=== PATIENT | male | born 1975 | race Caucasian/White ===

== ENCOUNTER 2017-07-02 09:21 | Observation (INO) | payer BC ==
[2017-07-02] MEDS ORDERED: Sodium Chloride 0.9% 2.5 ML Syringe FLUSH PRN (09:31)
[2017-07-02] MEDS ORDERED: Sodium Chloride 0.9% 10 ML Syringe FLUSH PRN (09:31)
[2017-07-02] MEDS: Nitroglycerin 0.4 MG Tab.SL SL ONE ×2 (09:36→09:44)
--- NOTE | 2017-07-02 09:37 | EDM.PDOC ---
ED HPI GENERAL MEDICAL PROBLEM - General Chief Complaint: Chest Pain Stated Complaint: CHEST PAIN Time Seen by Provider: 07/02/17 09:27 - History of Present Illness INITIAL COMMENTS - FREE TEXT/NARRATIVE: HISTORY AND PHYSICAL: History of present illness: The patient is a 41-year-old male who presents with chest pain that started approximately 2-1/2 hours ago while doing normal activities and has been persistent. The patient said he had an episode yesterday while at work when he was working with a hammer where he felt like his heart was beating hard but it wasn't necessarily chest pain. That lasted about 20 minutes. He was fine the rest of the evening and slept fine and woke up this morning was doing his morning activities when the discomfort started which he indicates at the left sternal border. There is no radiation and no associated symptoms. He rates it currently has a 3/10. The patient did take a 325 aspirin at home. The patient has a significant family history of a father who had a heart attack with in his mid 40s and the patient in the past has seen a sliver cutter at [facility] but has not seen that doctor for the last 2 years. He normally sees her on an annual visit. Patient said he last had a stress test 2 years ago which was normal. The patient recently quit smoking but does Vape and he does drink 2- 3 beers every day but has no drug use. The patient is normally active at work and has no chest pain with his activities. Patient has no leg pain or swelling and has been eating and drinking normally. Patient has no nausea or abdominal complaints currently. Review of systems: As per history of present illness and below otherwise all systems reviewed and negative. Past medical history: As per history of present illness and as reviewed below otherwise noncontributory. Surgical history: As per history of present illness and as reviewed below otherwise noncontributory. Social history: No reported history of drug or alcohol abuse. Family history: As per history of present illness and as reviewed below otherwise noncontributory. Physical exam: Gen.: Well-developed well-nourished man who is nontoxic and vital signs been reviewed by me. HEENT: Atraumatic, normocephalic, negative for conjunctival pallor or scleral icterus, mucous membranes moist, throat clear, neck supple, nontender, trachea midline. Lungs: Clear to auscultation, breath sounds equal bilaterally, chest nontender. Heart: S1S2, regular, negative for clicks, rubs, or JVD. Abdomen: Soft, nondistended, nontender. Negative for masses or hepatosplenomegaly. NABS Pelvis: Stable nontender. Genitourinary: Deferred. Rectal: Deferred. Extremities: Atraumatic, negative for cords or calf pain. Neurovascular unremarkable. No pedal edema or leg asymmetry Neuro: Awake, alert, oriented. Cranial nerves II through XII unremarkable. Cerebellum unremarkable. Motor and sensory unremarkable throughout. Exam nonfocal. Skin: No evidence of any overt rashes or lesions and no diaphoresis Diagnostics: EKG CBC CMP amylase lipase INR troponin chest x-ray Therapeutics: IV O2 monitor, patient took a 325 aspirin prior to arrival so I will not repeat the dosing, nitroglycerin sublingual nitroglycerin paste Re-eval--patient is chest pain-free after 2 sublingual nitros. 1/2 inch of nitro paste will be placed and I will continue to monitor his testing results and plan for observation admission. I discussed with the patient at length all of his testing results and his risk factors and after some thought he is agreeable for observation admission. I will discuss this case with our hospitalist Dr. Soares and plan for observation admission. He continues to remain pain-free Impression: Chest pain rule out ACS Definitive disposition and diagnosis as appropriate pending reevaluation and review of above. left chest Pain Score (Numeric/FACES): 4 - Related Data Allergies Allergy/AdvReac Type Severity Reaction Status Date / Time No Known Allergies Allergy Verified 07/02/17 09:24 Home Meds: Home Meds Acetaminophen/oxyCODONE [Percocet 325-5 MG] 1 tab PO DAILY 07/02/17 [History] Past Medical History HEENT History: Reports: None Cardiovascular History: Reports: Hypertension Respiratory History: Reports: None Gastrointestinal History: Reports: None Genitourinary History: Reports: None Musculoskeletal History: Reports: None Neurological History: Reports: None Psychiatric History: Reports: None Endocrine/Metabolic History: Reports: None Hematologic History: Reports: None Immunologic History: Reports: None Oncologic (Cancer) History: Reports: None Dermatologic History: Reports: None - Infectious Disease History Infectious Disease History: Reports: Chicken Pox - Past Surgical History Head Surgeries/Procedures: Reports: None HEENT Surgical History: Reports: None Cardiovascular Surgical History: Reports: None Respiratory Surgical History: Reports: None GI Surgical History: Reports: None Male Surgical History: Reports: None Endocrine Surgical History: Reports: None Neurological Surgical History: Reports: None Musculoskeletal Surgical History: Reports: None Oncologic Surgical History: Reports: None Dermatological Surgical History: Reports: None Social & Family History - Family History Cardiac: Reports: [place] - Tobacco Use Smoking Status *Q: Former Smoker Used Tobacco, but Quit: Yes Month Tobacco Last Used: 2 - Caffeine Use Caffeine Use: Reports: Coffee - Recreational Drug Use Recreational Drug Use: No ED ROS GENERAL - Review of Systems Review Of Systems: ROS reveals no pertinent complaints other than HPI. ED EXAM, GENERAL - Physical Exam Exam: See Below (See dictation) Course - Vital Signs Last Recorded V/S: Last Vital Signs Temp 36.4 C 07/02/17 09:25 Pulse 84 07/02/17 09:50 Resp 18 07/02/17 09:50 BP 116/72 07/02/17 09:50 Pulse Ox 98 07/02/17 09:50 - Orders/Labs/Meds Orders: Active Orders 24 hr Category Date Time Status Patient Status [ADT] Stat ADT 07/02/17 10:46 Ordered Cardiac Monitoring [RC] . DIRECTED Care 07/02/17 09:31 Active EKG Documentation Completion [RC] STAT Care 07/02/17 09:31 Active Oxygen Therapy, ED [RC] ASDIRECTED Care 07/02/17 09:31 Active Pulse Oximetry [RC] ASDIRECTED Care 07/02/17 09:31 Active Chest 1V Frontal [CR] Stat Exams 07/02/17 09:31 Taken Sodium Chloride 0.9% [Normal Saline] 1,000 ml Med 07/02/17 09:40 Active IV STAT Sodium Chloride 0.9% [Saline Flush] Med 07/02/17 09:31 Active 10 ml FLUSH ASDIRECTED PRN Sodium Chloride 0.9% [Saline Flush] Med 07/02/17 09:31 Active 2.5 ml FLUSH ASDIRECTED PRN Saline Lock Insert [OM.PC] Stat Oth 07/02/17 09:31 Ordered Medication Orders Sodium Chloride (Normal Saline) 1,000 mls @ 125 mls/hr IV STAT ONE Stop: 07/02/17 17:39 Last Admin: 07/02/17 09:41 Dose: 125 mls/hr Sodium Chloride (Saline Flush) 10 ml FLUSH ASDIRECTED PRN PRN Reason: Keep Vein Open Last Admin: 07/02/17 09:39 Dose: 10 ml Sodium Chloride (Saline Flush) 2.5 ml FLUSH ASDIRECTED PRN PRN Reason: Keep Vein Open Last Admin: 07/02/17 09:40 Dose: 2.5 ml Labs: Laboratory Tests 07/02/17 07/02/17 07/02/17 Range/Units 09:30 09:30 09:30 WBC 6.74 (4.0-11.0) K/uL RBC 5.17 (4.50-5.90) M/uL Hgb 15.2 (13.0-17.0) g/dL Hct 45.1 (38.0-50.0) % MCV 87.2 (80.0-98.0) fL MCH 29.4 (27.0-32.0) pg MCHC 33.7 (31.0-37.0) g/dL RDW Std Deviation 42.5 (28.0-62.0) fl RDW Coeff of Sujit 13 (11.0-15.0) % Plt Count 178 (150-400) K/uL MPV 9.80 (7.40-12.00) fL Neut % (Auto) 60.7 (48.0-80.0) % Lymph % (Auto) 25.7 (16.0-40.0) % [place] % (Auto) 11.7 (0.0-15.0) % Eos % (Auto) 1.5 (0.0-7.0) % Baso % (Auto) 0.4 (0.0-1.5) % Neut # (Auto) 4.1 (1.4-5.7) K/uL Lymph # (Auto) 1.7 (0.6-2.4) K/uL [place] # (Auto) 0.8 (0.0-0.8) K/uL Eos # (Auto) 0.1 (0.0-0.7) K/uL Baso # (Auto) 0.0 (0.0-0.1) K/uL Nucleated RBC % 0.0 /100WBC Nucleated RBCs # 0 K/uL INR 1.01 Sodium 135 L (136-146) mmol/L Potassium 3.5 (3.5-5.1) mmol/L Chloride 107 (98-110) mmol/L Carbon Dioxide 19 L (21-31) mmol/L BUN 14 (6.0-23.0) mg/dL Creatinine 1.0 (0.6-1.5) mg/dL Est Cr Clr Drug Dosing 92.15 mL/min Estimated GFR (MDRD) > 60.0 ml/min Glucose 97 (60-110) mg/dL Calcium 8.6 L (8.8-10.8) mg/dL Total Bilirubin 1.3 (0.1-1.5) mg/dL AST 28 (5-40) IU/L ALT 26 (8-54) IU/L Alkaline Phosphatase 69 (40-150) Troponin I < 0.10 (0.0-0.29) NG/ML Total Protein 6.5 (6.0-8.0) g/dL Albumin 4.1 (3.5-5.0) g/dL Globulin 2.4 (2.0-3.5) g/dL Albumin/Globulin Ratio 1.7 (1.3-2.8) Amylase 35 (10-90) U/L Lipase 10 (7-80) U/L Meds: Medications Generic Name Dose Route Start Last Admin Trade Name Freq PRN Reason Stop Dose Admin Sodium Chloride 1,000 mls @ 125 mls/hr 07/02/17 09:40 07/02/17 09:41 Normal Saline IV 07/02/17 17:39 125 mls/hr STAT ONE Administration Sodium Chloride 10 ml 07/02/17 09:31 07/02/17 09:39 Saline Flush FLUSH 10 ml ASDIRECTED PRN Administration Keep Vein Open Sodium Chloride 2.5 ml 07/02/17 09:31 07/02/17 09:40 Saline Flush FLUSH 2.5 ml ASDIRECTED PRN Administration Keep Vein Open Discontinued Medications Generic Name Dose Route Start Last Admin Trade Name Freq PRN Reason Stop Dose Admin Nitroglycerin 0.4 mg 07/02/17 09:30 07/02/17 09:44 Nitrostat SL 07/02/17 09:31 0.4 mg ONETIME ONE Administration Nitroglycerin 0.5 gm 07/02/17 09:55 07/02/17 10:00 Nitro-Bid 2% TOP 07/02/17 09:56 0.5 gm ONETIME ONE Administration Departure - Departure Time of Disposition: 10:47 Disposition: Refer to Observation Condition: Good Clinical Impression: Acute coronary syndrome - Discharge Information Forms: ED Department Discharge - My Orders Last 24 Hours: My Active Orders 07/02/17 09:31 Cardiac Monitoring [RC] . DIRECTED EKG Documentation Completion [RC] STAT Oxygen Therapy, ED [RC] ASDIRECTED Pulse Oximetry [RC] ASDIRECTED Chest 1V Frontal [CR] Stat Sodium Chloride 0.9% [Saline Flush] 10 ml FLUSH ASDIRECTED PRN Sodium Chloride 0.9% [Saline Flush] 2.5 ml FLUSH ASDIRECTED PRN Saline Lock Insert [OM.PC] Stat 07/02/17 09:40 Sodium Chloride 0.9% [Normal Saline] 1,000 ml IV STAT 07/02/17 10:46 Patient Status [ADT] Stat - Assessment/Plan Last 24 Hours: My Active Orders 07/02/17 09:31 Cardiac Monitoring [RC] . DIRECTED EKG Documentation Completion [RC] STAT Oxygen Therapy, ED [RC] ASDIRECTED Pulse Oximetry [RC] ASDIRECTED Chest 1V Frontal [CR] Stat Sodium Chloride 0.9% [Saline Flush] 10 ml FLUSH ASDIRECTED PRN Sodium Chloride 0.9% [Saline Flush] 2.5 ml FLUSH ASDIRECTED PRN Saline Lock Insert [OM.PC] Stat 07/02/17 09:40 Sodium Chloride 0.9% [Normal Saline] 1,000 ml IV STAT 07/02/17 10:46 Patient Status [ADT] Stat
[2017-07-02] MEDS ORDERED: Sodium Chloride 0.9% 1,000 ML IV ONE (09:40)
[2017-07-02] MEDS ORDERED: Nitroglycerin 2% Oint 1 GM UD Packet TOP ONE (09:55)
[2017-07-02 10:16] LABS: CHLORIDE,CL 107 mmol/L (98-110); SODIUM,NA 135 mmol/L (136-146)
--- NOTE | 2017-07-02 12:33 | PCM.HP ---
H&P History of Present Illness - History of Present Illness Initial Comments - Free Text/Narative: 41 yo male who presents with 2 hour history of chest pain. Patient reports yesterday having palpitations while going to bed. The palpitations return this morning while at a meeting at work. He also develped chest pressure that radiated to his back. He denied any shortness of breath, fevers, chills, cough or lightheadedness. Initial EKG and cardiac enzymes were negative for signs of ischemia. Patient had a stress test two years ago due to family history of cardiac of father. left chest Pain Score (Numeric/FACES): 4 - Related Data Allergies/Adverse Reactions: Allergies Allergy/AdvReac Type Severity Reaction Status Date / Time No Known Allergies Allergy Verified 07/02/17 09:24 Home Medications: Home Meds Acetaminophen/oxyCODONE [Percocet 325-5 MG] 1 tab PO DAILY 07/02/17 [History] Past Medical History HEENT History: Reports: None Cardiovascular History: Reports: Hypertension Respiratory History: Reports: None Gastrointestinal History: Reports: None Genitourinary History: Reports: None Musculoskeletal History: Reports: None Neurological History: Reports: None Psychiatric History: Reports: None Endocrine/Metabolic History: Reports: None Hematologic History: Reports: None Immunologic History: Reports: None Oncologic (Cancer) History: Reports: None Dermatologic History: Reports: None - Infectious Disease History Infectious Disease History: Reports: Chicken Pox - Past Surgical History Head Surgeries/Procedures: Reports: None HEENT Surgical History: Reports: None Cardiovascular Surgical History: Reports: None Respiratory Surgical History: Reports: None GI Surgical History: Reports: None Male Surgical History: Reports: None Endocrine Surgical History: Reports: None Neurological Surgical History: Reports: None Musculoskeletal Surgical History: Reports: None Oncologic Surgical History: Reports: None Dermatological Surgical History: Reports: None Social & Family History - Family History Cardiac: Reports: [place] - Tobacco Use Smoking Status *Q: Former Smoker Used Tobacco, but Quit: Yes Month Tobacco Last Used: 2 - Caffeine Use Caffeine Use: Reports: Coffee - Recreational Drug Use Recreational Drug Use: No H&P Review of Systems - Review of Systems: Review Of Systems: ROS reveals no pertinent complaints other than HPI. Exam - Exam Exam: See Below - Vital Signs Vital Signs: Last Vital Signs Temp 36.4 C 07/02/17 09:25 Pulse 86 07/02/17 10:45 Resp 18 07/02/17 10:45 BP 136/84 07/02/17 10:45 Pulse Ox 99 07/02/17 10:45 Weight: 89.6 kg - Exam General: Alert, Oriented HEENT: Mucosa Moist & [place] Neck: Supple, Trachea Midline Lungs: Clear to Auscultation, Normal Respiratory Effort Cardiovascular: Regular Rate, Regular Rhythm GI/Abdominal Exam: Normal Bowel Sounds, Soft, Non-Tender Extremities: Non-Tender, No Pedal Edema Skin: Warm, Dry, Intact Neurological: No: Focal Deficit - Patient Data Result Diagrams: 07/02/17 09:30 07/02/17 09:30 *Q Meaningful Use (ADM) - VTE *Q VTE Criteria *Q: - Stroke *Q Stroke Criteria *Q: - AMI *Q AMI Criteria *Q: Problem List Initiated/Reviewed/Updated: Yes Orders Last 24hrs: Active Orders 24 hr Category Date Time Status TROPONIN I [CHEM] Q6H Lab 07/02/17 16:00 Ordered TROPONIN I [CHEM] Q6H Lab 07/02/17 22:00 Ordered Medication Orders Sodium Chloride (Normal Saline) 1,000 mls @ 125 mls/hr IV STAT ONE Stop: 07/02/17 17:39 Last Admin: 07/02/17 09:41 Dose: 125 mls/hr Sodium Chloride (Saline Flush) 10 ml FLUSH ASDIRECTED PRN PRN Reason: Keep Vein Open Last Admin: 07/02/17 09:39 Dose: 10 ml Sodium Chloride (Saline Flush) 2.5 ml FLUSH ASDIRECTED PRN PRN Reason: Keep Vein Open Last Admin: 07/02/17 09:40 Dose: 2.5 ml Assessment/Plan Comment:: 41 yo male who presented with chest pain. We will monitor overnight on telemetry and rule out for acute coronary syndrome with serial cardiac enzymes
--- NOTE | 2017-07-03 10:52 | PCM.DCSUM1 ---
Discharge Summary - Hospital Course Brief History: 41 yo male who presents with 2 hour history of chest pain. Patient reports yesterday having palpitations while going to bed. The palpitations return this morning while at a meeting at work. He also developed chest pressure that radiated to his back. He denied any shortness of breath, fevers, chills, cough or lightheadedness. Initial EKG and cardiac enzymes were negative for signs of ischemia. Patient had a stress test two years ago due to family history of cardiac of father. - Discharge Data Discharge Date: 07/03/17 Discharge Disposition: Home, Self-Care 01 Condition: Good - Discharge Diagnosis/Problem(s) (1) Palpitations SNOMED Code(s): 71110863 ICD Code: R00.2 - PALPITATIONS Status: Acute (2) Chest pain SNOMED Code(s): 73486173 ICD Code: R07.9 - CHEST PAIN, UNSPECIFIED Status: Acute - Patient Instructions Diet: Heart Healthy Diet Activity: No Strenuous Activities Driving: Do Not Drive (no driving while taking narcotics) Showering/Bathing: September Shower Notify Provider of: Fever, Increased Pain, Swelling and Redness, Drainage, Nausea and/or Vomiting - Discharge Plan Home Medications: Home Meds Acetaminophen/oxyCODONE [Percocet 325-5 MG] 1 tab PO DAILY 07/02/17 [History] Patient Handouts: Chest Wall Pain, [id number] - Discharge Summary/Plan Comment DC Time >30 min.: No Discharge Summary/Plan Comment: Discharge Diagnoses: Chest pain-resolved Keyshawn was admitted and monitor for palpitations and chest tightness. All troponins were negative and telemetry showed no signs of ischemia or arrhythmia. ACS ruled out. Patient very eager to be discharged today. He was encouraged to follow up with Cardioligist in [place] who did his last stress test, 2 years ago, for another after this episode. he reports he will arrange for that, he did allow us to arrange outpatient follow up with his PCP in 1 week .he is returning home, [place], for days off on Monday. He was encouraged not to use Percocet or other opiates for chest pain, he was encouraged to seek help. he denies recreational drug use when questioned. He will be discharged today with follow up in 1 week with PCP. he is to return to ED or clinic if concern should arise. - General Info Date of Service: 07/03/17 Admission Dx/Problem (Free Text: chest tightness. Subjective Update: Doing well this morning, no concerns of pain returns.No chest pain or SOB. No palpitations. Eager for discharge home with work release. Functional Status: Reports: Pain Controlled, Tolerating Diet, Ambulating, Urinating - Review of Systems General: Reports: No Symptoms. Denies: Fever HEENT: Reports: No Symptoms. Denies: Headaches, Sinus Congestion, Sore Throat Pulmonary: Reports: No Symptoms. Denies: Shortness of Breath Cardiovascular: Reports: No Symptoms. Denies: Chest Pain, Palpitations, Dyspnea on Exertion Gastrointestinal: Reports: No Symptoms. Denies: Abdominal Pain, Nausea, Vomiting Genitourinary: Reports: No Symptoms. Denies: Dysuria, Frequency, Burning Musculoskeletal: Reports: No Symptoms Neurological: Reports: No Symptoms. Denies: Confusion Psychiatric: Reports: No Symptoms. Denies: Confusion - Patient Data Vitals - Most Recent: Last Vital Signs Temp 96.7 F 07/03/17 08:00 Pulse 63 07/03/17 08:00 Resp 22 H 07/03/17 08:00 BP 130/76 07/03/17 08:00 Pulse Ox 99 07/03/17 08:00 Weight - Most Recent: 89.6 kg I&O - Last 24 hours: Intake & Output 07/02/17 07/03/17 07/03/17 22:59 06:59 14:59 Intake Total 500 1250 Output Total 625 400 Balance -125 850 Lab Results - Last 24 hrs: Laboratory Results - last 24 hr 07/02/17 07/02/17 07/02/17 Range/Units 15:35 15:59 21:57 Troponin I < 0.10 < 0.10 (0.0-0.29) NG/ML Urine Opiates Screen NEGATIVE (NEGATIVE) Ur Oxycodone Screen POSITIVE (NEGATIVE) Urine Methadone Screen NEGATIVE (NEGATIVE) Ur Barbiturates Screen NEGATIVE (NEGATIVE) Ur Phencyclidine Scrn NEGATIVE (NEGATIVE) Ur Amphetamine Screen NEGATIVE (NEGATIVE) U Methamphetamines Scrn NEGATIVE (NEGATIVE) U Benzodiazepines Scrn NEGATIVE (NEGATIVE) U Cocaine Metab Screen NEGATIVE (NEGATIVE) U Marijuana (THC) Screen NEGATIVE (NEGATIVE) Med Orders - Current: Current Medications Sodium Chloride (Saline Flush) 10 ml FLUSH ASDIRECTED PRN PRN Reason: Keep Vein Open Last Admin: 07/02/17 09:39 Dose: 10 ml Sodium Chloride (Saline Flush) 2.5 ml FLUSH ASDIRECTED PRN PRN Reason: Keep Vein Open Last Admin: 07/02/17 09:40 Dose: 2.5 ml Discontinued Medications Sodium Chloride (Normal Saline) 1,000 mls @ 125 mls/hr IV STAT ONE Stop: 07/02/17 17:39 Last Admin: 07/02/17 09:41 Dose: 125 mls/hr Nitroglycerin (Nitrostat) 0.4 mg SL ONETIME ONE Stop: 07/02/17 09:31 Last Admin: 07/02/17 09:44 Dose: 0.4 mg Nitroglycerin (Nitro-Bid 2%) 0.5 gm TOP ONETIME ONE Stop: 07/02/17 09:56 Last Admin: 07/02/17 10:00 Dose: 0.5 gm - Exam General: Reports: Alert, Oriented, Cooperative, No Acute Distress Lungs: Reports: Clear to Auscultation, Normal Respiratory Effort Cardiovascular: Reports: Regular Rate, Regular Rhythm GI/Abdominal Exam: Normal Bowel Sounds, Soft, Non-Tender, No Organomegaly, No Distention, No Abnormal Bruit, No Mass, Pelvis Stable Back Exam: Reports: Normal Inspection, Full Range of Motion Extremities: Normal Inspection, Normal Range of Motion, Non-Tender, No Pedal Edema, Normal Capillary Refill Neurological: Reports: No New Focal Deficit Psy/Mental Status: Reports: Alert, Normal Affect, Normal Mood *Q Meaningful Use (DIS) - VTE *Q VTE Criteria *Q: - Stroke *Q Stroke Criteria *Q: - AMI *Q AMI Criteria *Q:
--- NOTE | 2017-07-03 16:01 | CR ---
EXAM DATE: 07/02/17 PATIENT'S AGE: 41 Patient: GIUSEPPE VELASQUEZ Facility: [place], [place] Site . Site : [id number] Study: XRay Chest [id number]/[id number] 10:26:56 AM Ordering Physician: Bo Uribe Final Report: INDICATION: Pain. Shortness of breath. TECHNIQUE: Single-view chest. FINDINGS: Heart size normal. Lungs clear without infiltrate or consolidation. Apparent left-sided should cervical rib. Chest otherwise negative without acute disease. Dictated by Lance Giron MD @ Jul 02 2017 10:27AM (Electronic Signature) Report Signed by Proxy. [id number]
== END 2017-07-03 12:15 | disposition home or self-care (01) ==
LOC: MW.ED 09:21 → MW.MS 11:05
PROVIDERS: ADMIT Internal Medicine; ATTEND Internal Medicine
DX: R07.89 Other chest pain (principal); R00.2 Palpitations; I10 Essential (primary) hypertension; Z87.891 Personal history of nicotine dependence; Z79.891 Long term (current) use of opiate analgesic; Z82.49 Family history of ischemic heart disease and other diseases of the circulatory system
CPT/HCPCS: 36415; 71045; 80053; 80305; 82150; 83690; 84484; 85025; 85610; 93005; 96360; 96361; 99285; A9270; G0378; J7040; 99284